=== PATIENT | male | born 1985 | race Caucasian/White ===

== ENCOUNTER 2017-04-20 11:13 | Observation (INO) | payer OTHER ==
[~2017-04-20] VITALS: Ht 185.4 cm; Wt 167.8 kg
--- NOTE | 2017-04-20 13:25 | ED UPPER/LOWER EXTREMITY COMPL ---
History of Present Illness General Chief Complaint: Lower Extremity Problems Stated Complaint: BLD CLOT RT UPPER THIGH/SENT FOR ADMISSION Source: patient, family, old records Exam Limitations: no limitations Vital Signs & Intake/Output Vital Signs & Intake/Output Vital Signs Date Time Temp Pulse Resp B/P B/P Pulse O2 O2 Flow FiO2 Mean Ox Delivery Rate 04/20 1816 97.5 82 19 130/74 99 Room Air 04/20 1545 98.7 83 19 132/77 97 Room Air 04/20 1121 97.6 77 15 139/73 96 Room Air Room Air Allergies Coded Allergies: Penicillins (DYSPNEA AND HIVES 04/20/17) Triage Note: PT SENT TO ED BY DR. DIALLO'S OFFICE FOR +DVT IN RIGHT UPPER THIGH. PT HAS HX OF DVT IN PAST 2010. PT HAD ULTRASOUND DONE THIS MORNING WHICH SHOWED +DVT. PAIN TO RIGHT UPPER THIGH, INCREASED SOB MOSTLY WHILE WALKING UP STAIRS. Triage Nurses Notes Reviewed? yes Onset: Gradual Duration: week(s): Timing: recent history Severity: moderate Pain/Injury Location: Right: Thigh. HPI: 32-year-old male with history of DVT central emergency department by primary care physician for right thigh DVT detected on outpatient ultrasound this morning. Patient states that he has had intermittent right thigh pain, worse with ambulation and climbing steps 10 days. Patient's prior DVT was in 2010 following leg surgery. Patient was on warfarin for a time period however his physician told him he could discontinue that medication years ago. Patient has had swelling of right thigh recently. Patient reports intermittent shortness of breath worse with exertion. He denies hemoptysis, chest pain, recent surgery or immobilization. (Rosalba BOWERS,Bette Rose) Reconcile Medications Ibuprofen 200 MG TABLET 2 TAB PO PRN PAIN/INFLAMMATION (Reported) Levothyroxine Sodium (Synthroid) 100 MCG TABLET 1 TAB PO 0700 THYROID ( Reported) Multiple Vitamin (Multivitamins) 1 EACH TABLET 1 TAB PO DAILY SUPPLEMENT ( Reported) (Umair Webb DO) Past History Travel History Traveled to [place] past 21 day No Medical History Any Pertinent Medical History? see below for history Cardiovascular: DVT Endocrine: HYPOTHYROID Influenza Vaccine: 01/03/11 Surgical History Surgical History: non-contributory Psychosocial History Who do you live with Mother What is your primary language Persian Tobacco Use: Never used ETOH Use: occasional use Illicit Drug Use: denies illicit drug use Family History Hx Contributory? No (Bette Nelson) Review of Systems Review of Systems Constitutional: Reports: no symptoms. EENTM: Reports: no symptoms. Respiratory: Reports: see HPI. Cardiovascular: Reports: no symptoms. Gastrointestinal/Abdominal: Reports: no symptoms. Genitourinary: Reports: no symptoms. Musculoskeletal: Reports: see HPI. Skin: Reports: no symptoms. Neurological/Psychological: Reports: no symptoms. Hematologic/Endocrine: Reports: see HPI. Immunological: Reports: no symptoms. All Other Systems: Reviewed and Negative (Rosalba BOWERS,Bette Rose) Physical Exam Physical Exam General Appearance: well developed/nourished, no apparent distress, alert, awake Head: atraumatic, normal appearance Eyes: Bilateral: normal appearance. Ears, Nose, Throat: hearing grossly normal Neck: normal inspection, supple, full range of motion Cardiovascular/Respiratory: normal breath sounds, normal peripheral pulses, regular rate/rhythm, no respiratory distress Peripheral Pulses: 2+ dorsalis pedis (R) Back: normal inspection, normal range of motion Leg Left: normal range of motion, normal inspection Leg Right: normal range of motion, normal inspection, tenderness to interior thigh, 1+ pitting edema Hip Left: normal range of motion, normal inspection Hip Right: normal range of motion, normal inspection Knee Left: normal range of motion, normal inspection Knee Right: normal range of motion, normal inspection Foot Left: normal inspection, normal range of motion Foot Right: normal inspection, normal range of motion Neurologic/Tendon: normal sensation, normal motor functions, normal tendon functions Skin: intact, normal color, warm/dry Comments: rectal exam:guiac negative (Bette Nelson) Progress Differential Diagnosis: CHF, contusion, DVT, PE Plan of Care: Orders Procedure Date/time Status Heart Healthy Diet 04/21 B Active LIPID PANEL 04/21 599 Active CBC WITHOUT DIFFERENTIAL 04/21 599 Active BASIC ELECTROLYTES PLUS BUN&CR 04/21 599 Active Add-on Test (ER Only) 04/20 1934 Active US-DUPLEX VENOUS EXTREM UNI 04/[address] in observation 04/20 1805 Active ECHOCARDIOGRAM 04/20 1750 Active Pathway - chart 04/20 1749 Active House Staff 04/20 1749 Active Code Status 04/20 1749 Active Patient Data 04/20 1728 Active ED Holding Orders 04/20 1722 Active Vital Signs 04/20 1722 Active Code Status 04/20 1722 Complete Add-on Test (ER Only) 04/20 1649 Active TROPONIN LEVEL 04/20 1427 Active GLYCOSYLATED HGB 04/20 1427 Active B-TYPE NATRIURETIC PEP (BNP) 04/20 1427 Active PARTIAL THROMBOPLASTIN TIME 04/20 1359 Complete PROTHROMBIN TIME 04/20 1359 Complete COMPREHENSIVE METABOLIC PANEL 04/20 1359 Active CBC WITHOUT DIFFERENTIAL 04/20 1359 Complete EKG 04/20 1128 Active Vital Signs 04/20 UNK Active Intake & Output 04/20 UNK Active Current Medications Sig/Tammy Start time Last Medication Dose Stop Time Status Admin Levothyroxine Sodium 0.1 MG 0700 04/21 0700 AC (Synthroid) Apixaban 10 MG BID 04/20 2200 AC 04/20 (Eliquis) 1731 Acetaminophen 650 MG Q6P PRN 04/20 1800 AC (Tylenol) Hydrocodone Bitart/ 1 TAB Q6P PRN 04/20 1800 AC Acetaminophen (Vicodin) Oxycodone/ 2 TAB Q6P PRN 04/20 1800 AC Acetaminophen (Percocet) Laboratory Tests 04/20/17 1427: Anion Gap 14, Estimated GFR > 60, BUN/Creatinine Ratio 18.6, Glucose 89, Hemoglobin A1c Pending, Calcium 9.1, Total Bilirubin 0.5, AST 39, ALT 57, Alkaline Phosphatase 88, Troponin I < 0.01, [id number] Pept 53.6, Total Protein 7.4, Albumin 4.1, Globulin 3.3, Albumin/Globulin Ratio 1.2, PT 12.5, INR 1.19 H, APTT 30, CBC w Diff NO MAN DIFF REQ, RBC 4.78, MCV 85.9, MCH 28.8, MCHC 33.5, RDW 12.9, MPV 7.8, Gran % 70.6, Lymphocytes % 17.5 L, Monocytes % 7.8, Eosinophils % 3.1, Basophils % 1.0, Absolute Granulocytes 9.4 H, Absolute Lymphocytes 2.3, Absolute Monocytes 1.0 H, Absolute Eosinophils 0.4, Absolute Basophils 0.1 Ultrasound from diagnostic imaging [facility] shows DVT of right Blake, popliteal and posterior tibial vein. Partially occlusive thrombus of greater saphenous vein extending from the mid thigh to the knee. CTA shows right-sided pulmonary embolism. Patient's EKG is in sinus rhythm. This patient was discussed with hospitalist regarding general medicine admission. Patient started on loading dose of Eliquis (10mg BID). Diagnostic Imaging: Viewed by Me: CT Scan. Discussed w/RAD: CT Scan. Initial ED EKG: sinus rhythm @ 75bpm, nonspecific ST changes Prior EKG: changed (03/12/11) (Bette Nelson) Departure Departure Disposition: HOME OR SELF CARE Condition: Stable Clinical Impression Primary Impression: Pulmonary embolism Qualifiers: Pulmonary embolism type: other Chronicity: acute Acute cor pulmonale presence: without acute cor pulmonale Qualified Code: I26.99 - Other pulmonary embolism without acute cor pulmonale Secondary Impressions: DVT (deep venous thrombosis) Qualifiers: DVT location: lower extremity Affected thrombotic vein of extremity : femoral Chronicity: acute Laterality: right Qualified Code: I82.411 - Acute embolism and thrombosis of right femoral vein Referrals: Shelly LAZO,Aziza Dupont (PCP/Family) Departure Forms: Customer Survey General Discharge Information Admission Note Documentation of Exam: Documentation of any treatments & extenuating circumstances including Concerns Regarding Discharge (functional status, medication knowledge or non-compliance, living conditions, etc.) that warrant an admission rather than observation: Observation Note Spoke With: Eagle Reynaga MDesha Physician Advisor Notified: UMAIR WEBB DO Place Patient In: Non-ED OBS Care Area Rationale for Observation: My rational for observation is as follows [Pulmonary embolism and DVT requiring anticoagulation, repeat EKGs, repeat labs, possible cardiovascular/pulmonary consult, echo, premature discharge would be medically unsafe]. (Bette Nelson) PA/CIRCUS AGENT Co-Sign Statement Statement: ED Attending supervision documentation- [x] I saw and evaluated the patient. I have also reviewed all the pertinent lab results and diagnostic results. I agree with the findings and the plan of care as documented in the PA's/CIRCUS AGENT's documentation. [] I have reviewed the ED Record and agree with the PA's/CIRCUS AGENT's documentation. [] Additions or exceptions (if any) to the PAs/CIRCUS AGENT's note and plan are summarized below: [] (Umair Webb DO)
[2017-04-20 14:37] LABS: ABSOLUTE BASOPHIL COUNT 0.1 /CUMM (0.0-0.2); ABSOLUTE EOSINOPHIL COUNT 0.4 /CUMM (0.0-0.7); ABSOLUTE GRANULOCYTE CT 9.4 /CUMM (1.4-6.5); ABSOLUTE LYMPH COUNT 2.3 /CUMM (1.2-3.4); EOSINOPHIL % 3.1 % (0-5); GRANULOCYTE % 70.6 % (42.2-75.2); MEAN CORPUSCULAR HGB 28.8 PG (27.0-31.0); MEAN CORPUSCULAR HGB CONC 33.5 G/DL (33.0-37.0); MEAN CORPUSCULAR VOLUME 85.9 FL (80.0-94.0); MEAN PLATELET VOLUME 7.8 FL (7.4-10.4); PLATELET COUNT 332 /CUMM (130-400); RBC DISTRIBUTION WIDTH 12.9 % (11.5-14.5); RED BLOOD CELL CT 4.78 /CUMM (4.70-6.10); WHITE BLOOD CELL COUNT 13.3 /CUMM (4.8-10.8)
[2017-04-20 14:55] LABS: PT 12.5 SEC (9.4-12.5); PTT 30 SEC (25-37)
--- NOTE | 2017-04-20 16:10 | CT SCAN REPORT ---
EXAMINATION: CT ANGIOGRAM OF THE CHEST WITH CONTRAST (CT PULMONARY ANGIOGRAM FOR PE) CLINICAL INFORMATION: Shortness of breath. Patient has deep vein thrombosis. Evaluate for pulmonary embolism. COMPARISON: No recent comparison exams available for review. TECHNIQUE: Prior to contrast administration, noncontrast localization images were obtained. Subsequently, multidetector volumetric imaging was performed from the thoracic inlet to below the diaphragms following the administration of 95 mL Optiray 350 intravenous contrast. No contrast reaction reported. Sagittal, coronal, and MIP oblique sagittal reformatted images were obtained on the CT workstation, uploaded to PACS, and reviewed. Total exam dose-length product 613 mGy-cm FINDINGS: OPERATIONS MANAGER: Large body habitus. QUALITY OF STUDY/CONTRAST BOLUS: Suboptimal. PULMONARY ARTERIES: Pulmonary arteries are normal in size. Although the quality of the contrast bolus is suboptimal, there is a definite nonocclusive filling defect of the distal right pulmonary artery that extends into the medial segmental branch, and possibly into the proximal posterior segmental branch of the right lower lobe. There might be emboli and other peripheral vessels; however, the peripheral vessels are poorly evaluated on this exam. THORACIC AORTA: Normal. No aneurysm or dissection. The great vessels arising from the top of the aortic arch are widely patent. LUNGS AND PLEURA: Trachea and central airways are widely patent and normal in caliber. No pulmonary edema, consolidation, mass, pleural effusion or pneumothorax. MEDIASTINUM: The heart size is normal. No pericardial effusion. No evidence of septal bowing or right heart strain. The esophagus is unremarkable. The visualized portion of the thyroid gland is normal. LYMPHATICS: No pathologic sized axillary, hilar or mediastinal lymph nodes. UPPER ABDOMEN: Liver appears slightly hypodense compared to the spleen on these arterial phase images; this suggests possibility of hepatic steatosis. Gallbladder surgically absent. Adrenal glands are normal. No reflux of contrast into the hepatic veins; no evidence of elevated right heart pressures. OSSEOUS STRUCTURES: No acute or suspicious osseous abnormality. IMPRESSION: Although the quality of the contrast bolus is not optimal, there is a definite embolic filling defect within the right lower lobe pulmonary artery extending into the medial segmental branch and possibly into the proximal posterior segmental branch. No evidence of heart strain. The critical test result was discussed with Bette Navarrete at 4:05 PM on 04/20/2017 it was ascertained that the content and the importance of the findings was understood at the time of the direct communication.
[2017-04-20] MEDS ORDERED: MULTIVITAMINS1 EAC9 PO (18:17)
[2017-04-20] MEDS ORDERED: IBUPROFEN200 M2 PO (18:18)
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
--- NOTE | 2017-04-20 19:20 | RADIOLOGY REPORT ---
EXAMINATION: XR ABDOMEN CLINICAL INDICATION: Evaluate IVC filter COMPARISON: 03/16/2011 TECHNIQUE: AP view of the abdomen. FINDINGS: There is an IVC filter at the level of L1-L2. 4 intact thick legs are demonstrated with additional less well seen within the legs as well superiorly. There are cholecystectomy clips in the right upper quadrant. Nonobstructive abdominal bowel gas pattern. IV contrast in the urinary bladder. No acute osseous abnormality. IMPRESSION: IVC filter in place at the level of the L1 and L2 vertebral bodies.
[2017-04-20] MEDS ORDERED: SYNTHROID100 MCG PO (19:36)
--- NOTE | 2017-04-20 20:41 | ULTRASOUND REPORT ---
EXAMINATION: US TRIPLEX LOWER EXTREMITY, LEFT CLINICAL INFORMATION: History of prior DVT. COMPARISON: None TECHNIQUE: Color-flow triplex imaging with spectral analysis and compression Doppler were performed on the lower extremity. FINDINGS: Respiratory variation, normal compression and augmented flow are noted throughout the lower extremity. The visualized common femoral vein, superficial femoral vein, profunda femoral vein, popliteal vein and midcalf peroneal and posterior tibial venous segments show no evidence of deep venous thrombosis. There is no Dill's cyst. IMPRESSION: Normal triplex scan without evidence of deep venous thrombosis involving the lower extremity.
[2017-04-20 22:28] VITALS: BP 136/80
[2017-04-20 22:45] VITALS: BP 172/100
[2017-04-21 06:49] VITALS: BP 130/70
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
[2017-04-21 09:25] LABS: ABSOLUTE BASOPHIL COUNT 0.1 /CUMM (0.0-0.2); ABSOLUTE EOSINOPHIL COUNT 0.3 /CUMM (0.0-0.7); ABSOLUTE GRANULOCYTE CT 8.7 /CUMM (1.4-6.5); ABSOLUTE LYMPH COUNT 1.9 /CUMM (1.2-3.4); ABSOLUTE MONOCYTE COUNT 0.9 /CUMM (0.10-0.60); BASOPHIL % 0.6 % (0.0-2.0); EOSINOPHIL % 2.4 % (0-5); GRANULOCYTE % 73.9 % (42.2-75.2); HEMATOCRIT 38.7 % (42-52); MEAN CORPUSCULAR HGB 28.6 PG (27.0-31.0); MEAN CORPUSCULAR HGB CONC 33.3 G/DL (33.0-37.0); PLATELET COUNT 306 /CUMM (130-400); RBC DISTRIBUTION WIDTH 12.4 % (11.5-14.5); RED BLOOD CELL CT 4.51 /CUMM (4.70-6.10); WHITE BLOOD CELL COUNT 11.8 /CUMM (4.8-10.8)
--- NOTE | 2017-04-21 11:44 | ECHOCARDIOGRAM REPORT ---
PRATIK CHAVEZ Age: 32 : 1985 Gender: M Exam Date: 04/20/2017 18:30 Exam Location: ER Ht (in): 73 Wt (lb): 370 BSA: 3.02 BP: 132 / 77 Ordering Physician: Maurice Beckwith MD Referring Physician: Maurice Beckwith MD Technologist: Bekah Martin RDCS Room Number: [id number] Indications: ACUTE PULMONARY EMBOLISM Rhythm: Sinus Technical Quality: good FINDINGS Left Ventricle Normal left ventricular size, wall thickness and systolic function with no obvious regional wall motion abnormalities. Normal left ventricular diastolic filling pattern for age. The ejection fraction is visually estimated at 60%. Right Ventricle The right ventricle is normal in size and function. Right Atrium The right atrium is normal in size. Left Atrium The left atrium is normal in size. The interatrial septum is intact. Mitral Valve The mitral valve is normal in structure and function. There is no mitral regurgitation. Aortic Valve Structurally normal aortic valve without significant sclerosis or stenosis. There is no aortic regurgitation. Tricuspid Valve The tricuspid valve is normal in structure and function. There is no tricuspid regurgitation. Pulmonic Valve Structurally normal pulmonic valve. There is no pulmonic regurgitation. Pericardium Normal pericardium without effusion. No pleural effusion. Great Vessels Normal aortic root dimension. The aortic arch and great vessels are well seen and are normal. CONCLUSIONS 1. Normal EF of 60%. Romulo Dunn M.D. (Electronically Signed) Final Date: 21 April 2017 11:43 MEASUREMENTS (Male / Female) Normal Values 2D ECHO LV Diastolic Diameter PLAX 5.3 cm 4.2 - 5.9 / 3.9 - 5.3 cm LV Systolic Diameter PLAX 2.9 cm 2.1 - 4.0 cm LV Fractional Shortening PLAX 45.3 % 25 - 46 % LV Ejection Fraction 2D Teich 76.2 % IVS Diastolic Thickness 1.1 cm LVPW Diastolic Thickness 1.1 cm LV Relative Wall Thickness 0.4 RV Internal Dim ED PLAX 2.6 cm 1.9 - 3.8 cm LVOT Diameter 2.3 cm Aortic Root Diameter 3.6 cm LA Systolic Diameter LX 4.3 cm 3.0 - 4.0 / 2.7 - 3.8 cm LA Volume 46.0 cm 18 - 58 / 22 - 52 cm Ascending Aorta Diameter 3.5 cm DOPPLER AV Peak Velocity 112.0 cm/s AV Peak Gradient 5.0 mmHg AV Mean Velocity 74.7 cm/s AV Mean Gradient 3.0 mmHg AV Velocity Time Integral 20.5 cm LVOT Peak Velocity 107.0 cm/s LVOT Peak Gradient 4.6 mmHg LVOT Mean Velocity 67.0 cm/s LVOT Mean Gradient 2.0 mmHg LVOT Velocity Time Integral 19.3 cm LVOT Stroke Volume 80.2 cm AV Area Cont Eq vti 3.9 cm AV Area Cont Eq pk 4.0 cm MV Peak Velocity 113.0 cm/s MV Peak Gradient 5.1 mmHg MV Mean Velocity 62.4 cm/s MV Mean Gradient 2.0 mmHg Mitral E Point Velocity 79.5 cm/s Mitral A Point Velocity 58.2 cm/s Mitral E to A Ratio 1.4 MV PHT Velocity 118.0 cm/s MV Deceleration [place] 629.0 cm/s MV Pressure Half Time 56.3 ms MV Area PHT 3.9 cm MV Deceleration Time 238.0 ms PV Peak Velocity 119.0 cm/s PV Peak Gradient 5.7 mmHg PV Mean Velocity 83.4 cm/s PV Mean Gradient 3.0 mmHg PV Velocity Time Integral 26.0 cm LV E' Lateral Velocity 17.1 cm/s Mitral E to LV E' Lateral Ratio 4.6 LV E' Septal Velocity 9.9 cm/s Mitral E to LV E' Septal Ratio 8.0
[2017-04-21] MEDS ORDERED: ELIQUIS5 M1 PO ×2 (12:45→13:25)
--- NOTE | 2017-04-21 13:07 | Patient Discharge Instructions ---
Discharge Instructions General Discharge Information You were seen/treated for: Extensive recurrent RLE DVT/PE Special Instructions: 1-Please follow up with your PCP in 1 week of discharge 2- Please folliow up with a vascular surgeon in 1 week of discharge 3- Please follow up with complex director in 1 week of discharge Diet Continue normal diet: Yes Acute Coronary Syndrome Inclusion Criteria At DC or during hospital stay patient has or had the following: ACS DIAGNOSIS No Discharge Core Measures Meds if any: Prescribed or Continued at Discharge Meds if any: NOT Prescribed or Continued at Discharge Congestive Heart Failure Inclusion Criteria At DC or during hospital stay patient has or had the following: CHF DIAGNOSIS No Discharge Core Measures Meds if any: Prescribed or Continued at Discharge Meds if any: NOT Prescribed or Continued at Discharge Cerebrovascular accident Inclusion Criteria At DC or during hospital stay patient has or had the following: CVA/TIA Diagnosis No Discharge Core Measures Meds if any: Prescribed or Continued at Discharge Meds if any: NOT Prescribed or Continued at Discharge Venous thromboembolism Inclusion Criteria VTE Diagnosis Yes VTE Type Pulmonary Embolism (DVT and PE) VTE Confirmed by (Test) CT CHEST ANGIOGRAM Discharge Core Measures - Per Current guidelines, there needs to be overlap - treatment for the first 5 days of Warfarin therapy. - If discharged on Warfarin prior to 5 days of - overlap therapy, the patient will need to be - assessed for post discharge needs including - *Post discharge parental anticoagulation - *Warfarin and/or parental anticoagulation education - *Follow up date to check INR post discharge At least 5 days overlap therapy as Inpatient No Meds if any: Prescribed or Continued at Discharge Note: Overlap Therapy is Warfarin and Anticoagulant Meds if any: NOT Prescribed or Continued at Discharge
[2017-04-21] MEDS ORDERED: HYDROCODON-ACE1 EAC2 PO ×2 (13:22→13:57)
[2017-04-21 13:53] VITALS: BP 130/80
[2017-04-21] MEDS ORDERED: PERCOCET 5-3251 EACH PO ×2 (14:17→16:01)
== END 2017-04-21 15:26 ==
LOC: ERH 11:13 → 2NA 17:22 → ERHI 17:22 → ENRESERV 18:23 → ENTRNSPT 20:41 → CMPTRNSPT 21:02 → 2NA 21:02 → ENTRNSPT 04-21 15:14 → 2NA 04-21 15:26 → CMPTRNSPT 04-21 15:58
PROVIDERS: Internal Medicine Hematology & Oncology; Physician Assistant
DX: I82.411 Acute embolism and thrombosis of right femoral vein (principal); I82.431 Acute embolism and thrombosis of right popliteal vein; I26.99 Other pulmonary embolism without acute cor pulmonale; Z86.718 Personal history of other venous thrombosis and embolism; Z79.01 Long term (current) use of anticoagulants; E03.9 Hypothyroidism, unspecified; I82.811 Embolism and thrombosis of superficial veins of right lower extremity; Z23 Encounter for immunization
CPT/HCPCS: 6030; 36415; 74018; 82436; 93005; 93010; 93306; 96374; 99291; G0008; G0378; J0131